=== PATIENT | female | born 1980 | race Caucasian/White ===

== ENCOUNTER 2017-08-31 20:15 | Emergency (ER) | payer SELFPAY ==
[2017-08-31 20:16] VITALS: BMI 17.8
[2017-08-31 20:32] VITALS: O2SAT 99
--- NOTE | 2017-08-31 20:56 | C.PDOC ---
Time Seen by Provider: 08/31/17 20:56 Chief Complaint (Nursing): Weakness/Neurological Deficit Past Medical History Vital Signs: Last Vital Signs Temp 98.4 F 08/31/17 20:27 Pulse 80 08/31/17 20:27 Resp 14 08/31/17 20:27 BP 111/72 08/31/17 20:27 Pulse Ox 99 08/31/17 20:27 - Medical History PMH: Gastritis, Migraine Denies: Chronic Kidney Disease - Social History Hx Alcohol Use: No Hx Substance Use: No - Immunization History Hx Tetanus Toxoid Vaccination: No Hx Influenza Vaccination: No Hx Pneumococcal Vaccination: No ED Course And Treatment O2 Sat by Pulse Oximetry: 99 Disposition Counseled Patient/Family Regarding: Studies Performed, Diagnosis - Disposition Disposition Time: 20:56
--- NOTE | 2017-08-31 21:02 | C.PDOC ---
History Of Present Illness patient states that since last has been having some numbness of her left face and left hand. No f/c/n/v. No slurred speech, no weakness, Speaking in complete sentences. [place] like it has gotten worse since yesterday. Time Seen by Provider: 08/31/17 20:56 Chief Complaint (Nursing): Weakness/Neurological Deficit History Per: Patient History/Exam Limitations: no limitations Onset/Duration Of Symptoms: Days (10) Current Symptoms Are (Timing): Still Present Severity: Mild Recent travel outside of the [place]: No Additional History Per: Family Past Medical History Reviewed: Historical Data, Nursing Documentation, Vital Signs Vital Signs: Last Vital Signs Temp 97.9 F 08/31/17 21:39 Pulse 71 08/31/17 21:39 Resp 18 08/31/17 21:39 BP 105/71 08/31/17 21:39 Pulse Ox 99 08/31/17 22:44 - Medical History PMH: Gastritis, Migraine Denies: Chronic Kidney Disease Family History: States: No Known Family Hx - Social History Hx Alcohol Use: No Hx Substance Use: No - Immunization History Hx Tetanus Toxoid Vaccination: No Hx Influenza Vaccination: No Hx Pneumococcal Vaccination: No Review Of Systems Constitutional: Negative for: Fever, Chills Eyes: Negative for: Redness ENT: Negative for: Ear Pain Cardiovascular: Negative for: Chest Pain Respiratory: Negative for: Shortness of Breath Gastrointestinal: Negative for: Nausea, Vomiting, Abdominal Pain Genitourinary: Negative for: Dysuria Musculoskeletal: Negative for: Back Pain Skin: Negative for: Rash, Lesions, Jaundice Neurological: Positive for: Other (numbness left face, left hand). Negative for : Weakness Psych: Negative for: Anxiety Physical Exam - Physical Exam Appears: Non-toxic, No Acute Distress Skin: Warm, Dry Head: Normacephalic Eye(s): bilateral: Normal Inspection, PERRL, EOMI Oral Mucosa: Moist Neck: Supple Chest: Symmetrical Cardiovascular: Rhythm Regular Respiratory: No Rales, No Rhonchi, No Wheezing Gastrointestinal/Abdominal: Soft, No Distention Back: No CVA Tenderness Extremity: No Tenderness Extremity: Bilateral: Atraumatic, No Pedal Edema, Normal Color And Temperature Pulses: Left Dorsalis Pedis: Normal, Right Dorsalis Pedis: Normal Neurological/Psych: Oriented x3, Normal Speech, Normal Cognition Gait: Steady ED Course And Treatment - Laboratory Results Result Diagrams: 08/31/17 21:16 08/31/17 21:16 O2 Sat by Pulse Oximetry: 99 Pulse Ox Interpretation: Normal NIHSS Stroke Scale - Date/Time Evaluation Performed Date Performed: 08/31/17 Time Performed: 20:55 When Was NIHSS Performed: Baseline - How Severe is the Stroke Level of Consciousness: 0=Alert LOC to Questions: 0=Both comments correct LOC to commands: 0=Obeys both correctly Best Gaze: 0=Normal Visual: 0=No visual loss Facial: 0=Normal Motor Arm - Left: 0=No drift Motor Arm - Right: 0=No drift Motor Leg - Left: 0=No drift Motor Leg - Right: 0=No drift Limb Ataxia: 0=Absent Sensory: 0=Normal Best Language: 0=No aphasia Dysarthia: 0=Normal articulation Extinction & Inattention (Neglect): 0=Normal, no object Score: 0 Medical Decision Making Medical Decision Making: Upon provider reevaluation patient is feeling better, is medically stable, and requires no further treatment in the ED at this time. Patient will be discharged home . Counseling was provided and all questions were answered regarding diagnosis and need for follow up with the referred clinic. There is agreement to discharge plan. Return if symptoms persist or worsen. Disposition Counseled Patient/Family Regarding: Studies Performed, Diagnosis, Need For Followup - Disposition Referrals: [facility] [Outside] Replaced By [facility] [Outside] Riley Turpin MD [Staff Provider] - Disposition: HOME/ ROUTINE Disposition Time: 21:02 Condition: FAIR Additional Instructions: Please follow up with neurologist and the clinic, regarding the need for MRI. Instructions: Paresthesia (ED) Forms: [facility] (German) Print Language: HUNGARIAN - Clinical Impression Clinical Impression: Paresthesias
[2017-08-31 21:19] LABS: BASO % 0.3 % (0.0-2.0); EOS # 0.1 K/uL (0.0-0.7); EOS % 1.2 % (0.0-4.0); HEMATOCRIT 36.9 % (34.0-47.0); LYMPH # 2.8 K/uL (1.0-4.3); LYMPH % 31.7 % (20.0-40.0); MEAN CELL VOLUME 88.9 fL (81.0-99.0); MEAN CORPUSCULAR HEMOGLOBIN 31.1 pg (27.0-31.0); MEAN PLATELET VOLUME 7.6 fL (7.2-11.7); MONO # 0.5 K/uL (0.0-0.8); MONO % 5.8 % (0.0-10.0); NRBC % 0.1 % (0.0-2.0); RED CELL DISTRIBUTION WIDTH 13.2 % (11.5-14.5)
[2017-08-31 21:24] LABS: WHITE BLOOD COUNT 8.8 K/uL (4.8-10.8)
[2017-08-31 21:26] LABS: CHLORIDE 101 mmol/L (98-107)
[2017-08-31 21:27] LABS: POTASSIUM 3.6 mmol/L (3.6-5.2); SODIUM 141 mmol/L (132-148)
[2017-08-31 21:28] LABS: RBC URINE 2 /hpf (0-3); URINE BILIRUBIN NEGATIVE (NEGATIVE); URINE BLOOD TRACE-INTACT (NEGATIVE); URINE COLOR Yellow (YELLOW); URINE GLUCOSE (UA) NORMAL (Normal); URINE KETONE NEGATIVE (NEGATIVE); URINE LEUKOCYTE ESTERASE NEG Leu/uL (Negative); URINE PROTEIN NEGATIVE (NEGATIVE); URINE UROBILINOGEN NORMAL mg/dL (0.2-1.0); WBC URINE < 1 /hpf (0-5)
[2017-08-31 21:29] LABS: BILIRUBIN,TOTAL 0.2 mg/dL (0.2-1.3); CARBON DIOXIDE 26 mmol/L (22-30); GFR AFRICAN-AMERICAN > 60
[2017-08-31 21:30] LABS: ALB/GLOB RATIO 1.4 (1.0-2.1); ALKALINE PHOSPHATASE 47 U/L (38-126); ALT/SGPT 39 U/L (9-52); AST/SGOT 25 U/L (14-36); BLOOD UREA NITROGEN 10 mg/dL (7-17); CALCIUM 9.8 mg/dl (8.6-10.4); GLUCOSE,RANDOM 82 mg/dL (65-105); TOTAL PROTEIN 7.7 g/dL (6.3-8.3)
[2017-08-31 21:40] VITALS: RESP 18; TEMP 97.9
[2017-08-31 23:05] VITALS: BP 117/78; PULSE 79
--- NOTE | 2017-09-01 08:27 | CT ---
PROCEDURE: CT HEAD WITHOUT CONTRAST. HISTORY: numbness, left face and left hand COMPARISON: None available. TECHNIQUE: Axial computed tomography images were obtained through the head/brain without intravenous contrast. Radiation dose: Total exam DLP = 782 mGy-cm. This CT exam was performed using one or more of the following dose reduction techniques: Automated exposure control, adjustment of the mA and/or kV according to patient size, and/or use of iterative reconstruction technique. FINDINGS: HEMORRHAGE: No intracranial hemorrhage. BRAIN: Small focal hypodensity in the genu of the corpus callosum to the right of midline series 4, image 25. VENTRICLES: Unremarkable. No hydrocephalus. CALVARIUM: Unremarkable. PARANASAL SINUSES: Unremarkable as visualized. No significant inflammatory changes. MASTOID AIR CELLS: Unremarkable as visualized. No inflammatory changes. OTHER FINDINGS: None. IMPRESSION: Small focal hypodensity in the genu of the corpus callosum to the right of midline series 4, image 25. A demyelinating lesion or focus of lacunar infarct cannot be excluded. MRI may be obtained for further assessment if clinically indicated. These findings were preliminarily reported at 10:12 p.m. on 08/31/[address] Justin Gonzáles from [facility].
== END 2017-08-31 22:59 | disposition home or self-care (01) ==
LOC: C.ER 20:15
DX: R20.2 Paresthesia of skin (principal)

== ENCOUNTER 2019-04-24 17:20 | Emergency (ER) | payer OTHER ==
[2019-04-24 17:20] VITALS: BMI 24.6
[2019-04-24 18:43] LABS: SQUAMOUS EPITHIAL 2 /hpf (0-5); URINE BACTERIA RARE (<OCC); URINE BILIRUBIN NEGATIVE (NEGATIVE); URINE BLOOD NEGATIVE (NEGATIVE); URINE CLARITY Clear (Clear); URINE COLOR Straw (YELLOW); URINE GLUCOSE (UA) NORMAL (Normal); URINE LEUKOCYTE ESTERASE NEG Leu/uL (Negative); URINE PROTEIN NEGATIVE (NEGATIVE); URINE UROBILINOGEN NORMAL mg/dL (0.2-1.0)
[2019-04-24] MEDS ORDERED: Lidocaine 5% Patch TD ONE (19:11)
--- NOTE | 2019-04-24 19:32 | C.PDOC ---
History Of Present Illness 39 y/o female pt presents to the ER c/o back pain that started yesterday. Pt reports he has chronic pain for several months to a year s/p work related injury. Pt has seen chiropractor and physical therapist in the past. Pt has been prescribe flexeril and naproxen by PMD, but it did not provide any relief. Pt also complain of b/l mid back pain that is sharp and non-radiating. Pt denies any urinary sx, trauma, hx of kidney stones, injury, numbness, tingling and weakness. Chief Complaint (Nursing): Back Pain History Per: Patient History/Exam Limitations: no limitations Onset/Duration Of Symptoms: Days (x1) Current Symptoms Are (Timing): Still Present Past Medical History Reviewed: Historical Data, Nursing Documentation, Vital Signs Vital Signs: Last Vital Signs Temp 97.9 F 04/24/19 17:27 Pulse 89 04/24/19 17:27 Resp 16 04/24/19 17:27 BP 116/74 04/24/19 17:27 Pulse Ox 98 04/24/19 17:27 Primary Care Provider: Giuseppe Ortiz - Medical History PMH: Gastritis, Migraine Family History: States: No Known Family Hx - Social History Hx Alcohol Use: No Hx Substance Use: No - Immunization History Hx Tetanus Toxoid Vaccination: No Hx Influenza Vaccination: No Hx Pneumococcal Vaccination: No Review Of Systems Constitutional: Negative for: Other (trauma ) Genitourinary: Negative for: Dysuria, Frequency, Incontinence, Hematuria Musculoskeletal: Positive for: Back Pain (right lumbar and b/l mid-back ) Neurological: Negative for: Weakness, Numbness, Other (tingling) Physical Exam - Physical Exam Appears: Non-toxic, No Acute Distress Skin: Warm, Dry Head: Atraumatic, Normacephalic Oral Mucosa: Moist Neck: Normal ROM, Supple Chest: Symmetrical Cardiovascular: Rhythm Regular Respiratory: Normal Breath Sounds, No Wheezing Gastrointestinal/Abdominal: Soft, No Tenderness Back: No CVA Tenderness, No Vertebral Tenderness, No Decreased ROM, Paraspinal Tenderness (left lumbar spine and b/l thoracic ) Extremity: No Pedal Edema, No Calf Tenderness, Capillary Refill (less than 2 seconds), No Deformity Neurological/Psych: Oriented x3, Normal Speech, Normal Cognition, Normal Motor, Normal Sensation Gait: Steady ED Course And Treatment - Laboratory Results Lab Results: Urine Color Straw (YELLOW) 04/24/19 18:20 Urine Clarity Clear (Clear) 04/24/19 18:20 Urine pH 7.0 (5.0-8.0) 04/24/19 18:20 Ur Specific [place] 1.005 (1.003-1.030) 04/24/19 18:20 Urine Protein Negative mg/dL (NEGATIVE) 04/24/19 18:20 Urine Glucose (UA) Normal mg/dL (Normal) 04/24/19 18:20 Urine Ketones Negative mg/dL (NEGATIVE) 04/24/19 18:20 Urine Blood Negative (NEGATIVE) 04/24/19 18:20 Urine Nitrate Negative (NEGATIVE) 04/24/19 18:20 Urine Bilirubin Negative (NEGATIVE) 04/24/19 18:20 Urine Urobilinogen Normal mg/dL (0.2-1.0) 04/24/19 18:20 Ur Leukocyte Esterase Neg Ron/uL (Negative) 04/24/19 18:20 Urine WBC (Auto) < 1 /hpf (0-5) 04/24/19 18:20 Urine RBC (Auto) < 1 /hpf (0-3) 04/24/19 18:20 Ur Squamous Epith Cells 2 /hpf (0-5) 04/24/19 18:20 Urine Bacteria Rare (<OCC) 04/24/19 18:20 O2 Sat by Pulse Oximetry: 98 (RA) Pulse Ox Interpretation: Normal Medical Decision Making Medical Decision Making: Plans: -- UA ordered-unremarkable -- lidoderm patch applied -- toradol IM given -- Valium PO given On reassessment, patient is resting comfortably with noted improvement of pain -stable for discharge Disposition Counseled Patient/Family Regarding: Studies Performed, Diagnosis, Need For Followup, Rx Given - Disposition Referrals: Giuseppe Ortiz MD [Staff Provider] - Disposition: HOME/ ROUTINE Disposition Time: 19:32 Condition: IMPROVED Additional Instructions: Your urine test was negative for urinary tract infection Continue meds as prescribed for lower back pain Follow up with PMD in 1-2 days if symptoms persist- may need MRI Return to the ED if symptoms worsen La prueba de orina fue negativa para la infeccin del tracto urinario Contine con los medicamentos segn lo prescrito para el dolor lumbar Seguimiento con PMD en 1-2 ahuja si los sntomas persisten-puede necesitar resonancia magntica Regrese a la ED si los sntomas empeoran Prescriptions: Cyclobenzaprine [Flexeril] 10 mg PO TID PRN #15 tab PRN Reason: Muscle Spasm Ibuprofen [Motrin] 600 mg PO Q8 PRN #30 tab PRN Reason: Pain, Moderate (4-7) Lidocaine 5% [Lidoderm] 1 ea TD DAILY PRN #10 patch PRN Reason: Pain, Moderate (4-7) Instructions: Chronic Pain (DC) Forms: [employer] (Yoruba) - Clinical Impression Clinical Impression: Low back pain, Mid back pain - PA / INFECTIOUS WASTE TECHNICIAN / Resident Statement MD/ has reviewed & agrees with the documentation as recorded. - Scribe Statement The provider has reviewed the documentation as recorded by the Monica Perkins Do All medical record entries made by the Scribe were at my direction and personally dictated by me. I have reviewed the chart and agree that the record accurately reflects my personal performance of the history, physical exam, medical decision making, and the department course for this patient. I have also personally directed, reviewed, and agree with the discharge instructions and disposition.
[2019-04-24 19:52] VITALS: BP 106/70; PULSE 78; RESP 18; TEMP 99.1
[2019-04-24 20:04] VITALS: O2SAT 98
[2019-04-25] MEDS ORDERED: Lidocaine 5% Patch TD SCH (10:00)
== END 2019-04-24 19:52 | disposition home or self-care (01) ==
LOC: C.ER 17:20
DX: M54.5 Low back pain (principal)
CPT/HCPCS: 81001; 81025; 96372; 99283; J1885